=== PATIENT | female | born 1990 ===

== ENCOUNTER 2018-05-26 17:23 | Emergency (ER) | payer OTHER ==
[2018-05-26 17:24] VITALS: BMI 25.7
[2018-05-26 17:47] VITALS: RESP 16; O2SAT 98
[2018-05-26] MEDS ORDERED: Sodium Chloride 0.9% 1,000 ML IV STA (18:44)
[2018-05-26] MEDS ORDERED: Iohexol 240 (50 ml) PO STA (19:26)
--- NOTE | 2018-05-26 19:28 | ED PDOC ---
HPI: Abdomen Time Seen by Provider: 05/26/18 18:19 Chief Complaint (Nursing): Abdominal Pain Chief Complaint (Provider): Abdominal Pain History Per: Patient History/Exam Limitations: no limitations Onset/Duration Of Symptoms: Intermittent Episodes (since March) Current Symptoms Are (Timing): Still Present Location Of Pain/Discomfort: Diffuse Quality Of Discomfort: Cramping, "Pain" Associated Symptoms: Diarrhea (bloody) Additional Complaint(s): 28 year old female with no significant medical history presents to the ED for evaluation of cramping abdominal pain and bloody diarrhea intermittently since March. Patient reports visiting [facility] on 05/10/2018 where she was diagnosed with colitis, without testing to correlate diagnosis and discharged with a course of antibiotics that she completed. Symptoms continue in addition to lightheadedness and weight loss. Patient is unsure how much weight she lost but states that all of her clothes are too big. She is scheduled for an appointment on June 17 with a satellite installer. She offers no other complaints. PMD: none provided Past Medical History Reviewed: Historical Data, Nursing Documentation, Vital Signs Vital Signs: Last Vital Signs Temp 98.3 F 05/26/18 17:41 Pulse 78 05/26/18 17:41 Resp 16 05/26/18 17:41 BP 90/56 L 05/26/18 17:41 Pulse Ox 98 05/26/18 17:41 - Medical History PMH: No Chronic Diseases - Surgical History Surgical History: No Surg Hx - Family History Family History: States: No Known Family Hx - Social History Current smoker - smoking cessation education provided: No Alcohol: None - Immunization History Hx Tetanus Toxoid Vaccination: No Hx Influenza Vaccination: No Hx Pneumococcal Vaccination: No - Home Medications Home Medications: Ambulatory Orders Medication Instructions Recorded Nitrofurantoin Macrocrystals 100 mg PO BID #13 cap 04/05/15 [Macrobid] Naproxen [Naprosyn] 1 tab PO BID PRN #20 tab 09/04/17 Nitrofurantoin Macrocrystals 1 cap PO BID #14 cap 09/04/17 [Macrobid] Dicyclomine [Bentyl] 20 mg PO QID PRN #20 tab 05/27/18 Saccharomyces Boulardi [Florastor] 500 mg PO BID #28 cap 05/27/18 predniSONE [Prednisone] 60 mg PO DAILY 10 Days tab 05/27/18 - Allergies Allergies/Adverse Reactions: Allergies Allergy/AdvReac Type Severity Reaction Status Date / Time No Known Allergies Allergy Verified 05/26/18 17:41 Review of Systems ROS Statement: Except As Marked, All Systems Reviewed And Found Negative Constitutional: Positive for: Weight loss, Other (lightheadedness). Negative fo r: Fever Gastrointestinal: Positive for: Abdominal Pain (cramping ), Diarrhea (bloody) Physical Exam - Reviewed Nursing Documentation Reviewed: Yes Vital Signs Reviewed: Yes - Physical Exam Appears: Positive for: In Acute Distress (mild painful distress; tired appearing) Head Exam: Positive for: ATRAUMATIC, NORMAL INSPECTION, NORMOCEPHALIC Skin: Positive for: Warm, Dry, Pallor Eye Exam: Positive for: EOMI, PERRL, Other (sunken orbits bilaterally) ENT: Positive for: Other (tacky mucous membranes) Neck: Positive for: Painless ROM, Supple Cardiovascular/Chest: Positive for: Regular Rate, Rhythm. Negative for: Murmur Respiratory: Positive for: Normal Breath Sounds. Negative for: Respiratory Distress Gastrointestinal/Abdominal: Positive for: Tenderness (bilateral lower quadrant tenderness to palpation). Negative for: Mass, Guarding, Rebound Back: Positive for: Normal Inspection. Negative for: Muscle Spasm Extremity: Positive for: Normal ROM. Negative for: Deformity Neurological/Psych: Positive for: Awake, Alert, Normal Tone, Oriented. Negative for: Motor/Sensory Deficits - Laboratory Results Result Diagrams: 05/26/18 19:26 05/26/18 19:26 - ECG O2 Sat by Pulse Oximetry: 98 (RA) Pulse Ox Interpretation: Normal Medical Decision Making Medical Decision Makin:42 Impression: abdominal pain and diarrhea Differential diagnoses include but are not limited to: colitis, anemia, inflammatory bowel disease, electrolyte abnormality, dehydration, enterohemorrhagic diarrhea Initial Plan: --Blood type and screen --CT abdomen pelvis w/ contrast --CMP --CBC --Magnesium --Phosphate --Urine dip --Urine preg --PTT --PT --Bentyl 20 mg PO --Dextrose 5%-0.9% NS IV 1,000 mls --NS IV 1,000 mls --Omnipaque 50 ml PO --Blood cx --Ova and parasite --Stool cx --C Diff toxin --UA Name: DONNA RANDLE Exam Date: May 26, 2018 10:31:30 PM EDT Modality Type: CT Description: CT - ABDOMEN AND PELVIS WITH CORONAL AND SAGITTAL MPRS Gender: F Laterality: Not applicable : 89 Referring Physician: Tyesha Osborn EXAM: CT Abdomen and Pelvis with IV contrast CLINICAL HISTORY: Abd pain, bloody stool TECHNIQUE: Axial computed tomography images of the abdomen and pelvis with oral intravenous contrast. 421.27 mGy-cm CONTRAST: With; [id number] 90ml COMPARISON: None provided. FINDINGS: LUNG BASES: The lung bases appear clear. No pleural effusions are seen. LIVER: Unremarkable. GALLBLADDER AND BILE DUCTS: The gallbladder appears within normal limits. No radioopaque gallstones are seen. No biliary ductal dilatation is evident. PANCREAS: Unremarkable. SPLEEN: Unremarkable. ADRENAL GLANDS: Unremarkable. KIDNEYS, URETERS, AND BLADDER: The kidneys appear within normal limits. There is no hydronephrosis or hydrou reter. No urinary calculi are seen. STOMACH AND BOWEL: Thick walled fluid filled duodenum and loops of jejunum as well as ileum compatible with enteritis. Thick walled fluid filled descending and sigmoid colon is noted compatible with colitis. APPENDIX: No evidence of acute appendicitis on CT examination. PERITONEUM: No free fluid. No free air. LYMPH NODES: No lymphadenopathy is evident. REPRODUCTIVE: Complex 2 cm right ovarian cyst is seen. The uterus and ovaries are otherwise n ormal. VASCULATURE: No evidence of abdominal aortic aneurysm. BONES: No aggressive appearing osseous lesion. No acute osseous pathology evident. IMPRESSION: 1. Enteritis and colitis as above. Consider consultation with GI service. 2. Complex 2 cm right ovarian cyst. Electronically signed on May 26, 2018 11:26:15 PM EDT by: Tru Ramirez M.D., JESSE Certified By [employer] Fellowship Trained MRI and CT Specialist Labs are unremarkable: no anemia, no sepsis. Given the duration of patient's symptoms, clinical presentation most consistent with possible inflammatory bowel disease, especially since pt reports completed course of antibiotics. Informed pt about possible chronic disease and will trial steroids and stressed need for urgent followup with GI. Already has appointment scheduled and encouraged to continue calling GI for possible earlier appointment. Scribe Attestation: Documented by Leslie Lawrence, acting as a scribe for Tyesha Osborn MD. Provider Scribe Attestation: All medical record entries made by the Scribe were at my direction and personally dictated by me. I have reviewed the chart and agree that the record accurately reflects my personal performance of the history, physical exam, medical decision making, and the department course for this patient. I have also personally directed, reviewed, and agree with the discharge instructions and disposition. Disposition - Clinical Impression Clinical Impression: Enterocolitis Counseled Patient/Family Regarding: Studies Performed, Diagnosis, Need For Followup, Rx Given - Disposition Disposition: Routine/Home Disposition Time: 00:11 Condition: STABLE Prescriptions: Dicyclomine [Bentyl] 20 mg PO QID PRN #20 tab PRN Reason: abdominal pain predniSONE [Prednisone] 60 mg PO DAILY 10 Days tab Saccharomyces Boulardi [Florastor] 500 mg PO BID #28 cap Instructions: Colitis (DC) Forms: [facility] ED School/Work Excuse Print Language: ITALIAN
[2018-05-26 19:39] LABS: BASO # 0.1 K/uL (0.0-0.2); BASO % 1.3 % (0.0-2.0); EOS # 0.8 K/uL (0.0-0.7); EOS % 8.3 % (0.0-4.0); HEMOGLOBIN 12.3 g/dL (12.0-16.0); LYMPH # 2.9 K/uL (1.0-4.3); LYMPH % 30.9 % (20.0-40.0); MEAN CELL VOLUME 85.3 fl (81.0-99.0); MEAN CORPUSCULAR HEMOGLOBIN 28.5 pg (27.0-31.0); MEAN CORPUSCULAR HGB CONC 33.4 g/dL (33.0-37.0); MEAN PLATELET VOLUME 8.3 fl (7.2-11.7); MONO # 0.7 K/uL (0.0-0.8); MONO % 7.2 % (0.0-10.0); NEUT % 52.3 % (50.0-75.0); NRBC % 0.1 % (0.0-0.0); RBC 4.32 Mil/uL (3.80-5.20); RED CELL DISTRIBUTION WIDTH 13.1 % (11.5-14.5); WHITE BLOOD COUNT 9.5 K/uL (4.8-10.8)
[2018-05-26 19:41] LABS: INR 1.2; PROTHROMBIN TIME 13.4 Seconds (9.8-13.1)
[2018-05-26] MEDS ORDERED: Iohexol 240 (50 ml) ONE (19:45)
[2018-05-26 19:49] LABS: ALB/GLOB RATIO 1.2 (1.0-2.1); ALBUMIN 4.4 g/dL (3.5-5.0); ALT/SGPT 18 U/L (9-52); AST/SGOT 24 U/L (14-36); BLOOD UREA NITROGEN 9 mg/dl (7-17); CALCIUM 9.7 mg/dL (8.4-10.2); GFR NON-AFRICAN AMERICAN > 60
[2018-05-26 19:56] LABS: SQUAMOUS EPITHIAL 5 /hpf (0-5); URINE BACTERIA RARE (<OCC); URINE BILIRUBIN NEGATIVE (NEGATIVE); URINE BLOOD NEGATIVE (NEGATIVE); URINE CLARITY CLEAR (Clear); URINE COLOR STRAW (YELLOW); URINE GLUCOSE (UA) NEG (NEGATIVE); URINE LEUKOCYTE ESTERASE SMALL Leu/uL (Negative); URINE PROTEIN NEGATIVE (NEGATIVE); URINE UROBILINOGEN 0.2-1.0 mg/dL (0.2-1.0)
[2018-05-26] MEDS ORDERED: Iohexol 300 100 ML IJ ONE (22:30)
[2018-05-27 00:10] VITALS: BP 109/73; PULSE 72; TEMP 98.3
--- NOTE | 2018-05-27 13:30 | CT ---
Date of service: 05/26/2018 PROCEDURE: CT Abdomen and Pelvis with contrast HISTORY: Abdominal pain, bloody stool COMPARISON: None available. TECHNIQUE: CT scan of the abdomen and pelvis was performed after administration of intravenous contrast. Oral contrast was administered. Coronal and sagittal reformatted images were obtained. Contrast dose: 90 mL Omnipaque 300 Radiation dose: Total exam DLP = 421.27 mGy-cm. This CT exam was performed using one or more of the following dose reduction techniques: Automated exposure control, adjustment of the mA and/or kV according to patient size, and/or use of iterative reconstruction technique. FINDINGS: LOWER THORAX: The visualized lungs are clear. LIVER: Mild hepatomegaly and fatty liver. Homogeneous enhancement. No gross lesion or ductal dilatation. GALLBLADDER AND BILE DUCTS: Well distended. No calcified gallstones, wall thickening or pericholecystic fluid. PANCREAS: Normal in size with homogeneous enhancement. No gross lesion or ductal dilatation. SPLEEN: Normal in size and appearance. ADRENALS: No discrete nodule. KIDNEYS AND URETERS: Normal in size with homogeneous enhancement. No hydronephrosis. No solid mass. VASCULATURE: No aortic aneurysm. There are no aortic atherosclerotic calcifications or mural plaque present. BOWEL: The small bowel loops are normal in caliber. There is moderate amount of stool in the ascending and transverse colon. There is apparent circumferential mural thickening in the splenic flexure, descending and sigmoid colon with mild mucosal enhancement. No significant pericolonic inflammatory changes, micro perforation or abscess. APPENDIX: Normal appendix. PERITONEUM: No free fluid. No free air. LYMPH NODES: No enlarged lymph nodes. BLADDER: Well distended and normal in appearance. REPRODUCTIVE: Retroverted and normal in size. BONES: No acute fracture. Within normal limits for the patient's age. OTHER FINDINGS: None. IMPRESSION: Findings are most compatible with nonspecific acute infectious/inflammatory colitis. No evidence for perforation, drainable fluid collection or abscess. A preliminary report was provided by [employer].
== END 2018-05-27 00:34 | disposition home or self-care (01) ==
LOC: H.ER 17:23
DX: K52.9 Noninfective gastroenteritis and colitis, unspecified (principal); N83.201 Unspecified ovarian cyst, right side
CPT/HCPCS: 74177; 80053; 81003; 81025; 83735; 84100; 85025; 85610; 85730; 86850; 86900; 87040; 87045; 87177; 87209; 87230; 99284; J7030; J7042; Q9966; Q9967